=== PATIENT | male | born 1965 | race Caucasian/White ===

== ENCOUNTER → 2017-12-16 | Outpatient (CLI) | payer BC, OTHER | LOC: M SLEEP 19:20 | DX: G47.33 Obstructive sleep apnea (adult) (pediatric) (principal) | CPT/HCPCS: 95810 ==

== ENCOUNTER → 2018-02-03 | Outpatient (CLI) | payer BC, OTHER | LOC: M SLEEP 19:31 | DX: G47.33 Obstructive sleep apnea (adult) (pediatric) (principal) | CPT/HCPCS: 95811 ==

== ENCOUNTER 2018-07-14 13:37 | Emergency (ER) | payer OTHER, BC | END 2018-07-14 15:28 | disposition home or self-care (01) | LOC: M ED 13:37 | DX: T14.8XXA Other injury of unspecified body region, initial encounter (principal); Y04.0XXA Assault by unarmed brawl or fight, initial encounter; Y92.149 Unspecified place in prison as the place of occurrence of the external cause; K21.9 Gastro-esophageal reflux disease without esophagitis; Z88.8 Allergy status to other drugs, medicaments and biological substances; Z79.899 Other long term (current) drug therapy | CPT/HCPCS: 73030 ==

== ENCOUNTER → 2018-10-25 | Outpatient (REF) | payer OTHER, BC ==
[~2018-10-25] MED LIST: PANT40TA3 PO; RANI1TAB38 PO
== END ==
LOC: M LAB REF 12:25
PROVIDERS: ATTEND Nurse Practitioner Adult Health
DX: R05 Cough (principal); M79.12 Myalgia of auxiliary muscles, head and neck

== ENCOUNTER → 2019-01-24 | Outpatient (REF) | payer OTHER | LOC: M LAB REF 12:12 | PROVIDERS: ATTEND Nurse Practitioner Adult Health | DX: R79.82 Elevated C-reactive protein (CRP) (principal) ==

== ENCOUNTER 2019-04-20 06:51 | Day surgery (SDC) | payer BC, OTHER ==
[~2019-04-20] VITALS: Ht 177.8 cm; Wt 110.1 kg
[~2019-04-20 06:51] MED LIST changes: +ROSU10TA6 PO; +SING5CHW23 PO
[2019-04-20] MEDS ORDERED: NS 1,000 ML IV ONE (07:15)
[2019-04-20] MEDS ORDERED: LIDOCAINE 2% INJ 100 MG/5 ML SDV (FOR ANES.) As Ordered ONE (07:32)
[2019-04-20] MEDS ORDERED: PROPOFOL 200 MG/20 ML VIAL As Ordered ONE ×2 (07:32→07:46)
--- NOTE | 2019-04-20 07:49 | ROOR ---
Patient Name: Jacob Wilkerson Procedure Date: 04/20/2019 7:32 AM Date of : 1965 Age: 53 Room: [facility] Gender: Male Note Status: Finalized Procedure: Colonoscopy Indications: High risk colon cancer surveillance: Personal history of colonic polyps, Last colonoscopy: October 2015 Providers: Jose Manuel JAY MD Referring MD: Ana Lilia Hernandez NP Requesting Provider: Medicines: Monitored Anesthesia Care Complications: No immediate complications. Procedure: Pre-Anesthesia Assessment: - The heart rate, respiratory rate, oxygen saturations, blood pressure, adequacy of pulmonary ventilation, and response to care were monitored throughout the procedure. The Colonoscope was introduced through the anus and advanced to the cecum, identified by appendiceal orifice and ileocecal valve. The colonoscopy was performed without difficulty. The patient tolerated the procedure well. The quality of the bowel preparation was good. Findings: The perianal and digital rectal examinations were normal. Two sessile polyps were found in the rectum and sigmoid colon. The polyps were diminutive in size. These polyps were removed with a cold snare. Resection and retrieval were complete. Small Internal Hemorrhoids. The exam was otherwise without abnormality on direct and retroflexion views. Impression: - Two diminutive polyps in the rectum and in the sigmoid colon, removed with a cold snare. Resected and retrieved. - Small Internal Hemorrhoids. - The examination was otherwise normal on direct and retroflexion views. Recommendation: - Repeat colonoscopy in 5 years for surveillance. Jose Manuel Jay MD Jose Manuel JAY MD 04/20/2019 7:48:45 AM Electronically signed by Jose Manuel JAY MD Number of Addenda: 0 Note Initiated On: 04/20/2019 7:32 AM Estimated Blood Loss: Estimated blood loss: none.
[2019-04-20 08:13] VITALS: BP 144/79
== END 2019-04-20 08:15 | disposition home or self-care (01) ==
LOC: M OPP 06:51
PROVIDERS: ATTEND Internal Medicine Gastroenterology
DX: Z12.11 Encounter for screening for malignant neoplasm of colon (principal); Z86.010 Personal history of colon polyps; D12.5 Benign neoplasm of sigmoid colon; K62.1 Rectal polyp; K64.9 Unspecified hemorrhoids; K21.9 Gastro-esophageal reflux disease without esophagitis; G47.30 Sleep apnea, unspecified; E78.00 Pure hypercholesterolemia, unspecified; G43.909 Migraine, unspecified, not intractable, without status migrainosus; Z88.8 Allergy status to other drugs, medicaments and biological substances; Z79.899 Other long term (current) drug therapy

== ENCOUNTER → 2021-04-02 | Outpatient (REF) | payer OTHER, BC ==
[~2021-04-02] MED LIST changes: +PANT40TA29 PO; -PANT40TA3 PO
== END ==
LOC: M LAB REF 12:11
PROVIDERS: ATTEND Nurse Practitioner Adult Health
DX: M25.50 Pain in unspecified joint (principal)

== ENCOUNTER → 2021-05-01 | Outpatient (CLI) | payer BC, OTHER ==
--- NOTE | 2021-05-01 11:40 | REP ---
INDICATION: ABN GFR. COMPARISON: None. TECHNIQUE: Multiple ultrasonographic images of the kidneys and bladder. FINDINGS: The right kidney measures 11.8 x 17.2 x 5.9 cm The left kidney measures 10.4 x 5.4 x 5.8 cm. The kidneys are normal size. Renal cortical echogenicity is normal bilaterally. There is no calculus or hydronephrosis on the right or the left. There are no solid or cystic masses on the right or the left. There is a column of Eulalio versus duplication on the left. Bladder ultrasound: No bladder wall polyps or masses are identified. With color Doppler imaging we are unable to demonstrate ureteral jets on the right or the left. The prostate is upper normal size measuring 4.4 x 3.5 by 4.0 cm for a volume of 32 cc. IMPRESSION: Essentially negative renal ultrasound. We are unable to demonstrate ureteral jets into the bladder, however, there is no hydronephrosis. <Electronically signed by Juan Mcdermott > 05/01/21 [id number]
== END ==
LOC: M RAD 10:48
PROVIDERS: ATTEND Nurse Practitioner Adult Health
DX: R94.4 Abnormal results of kidney function studies (principal)

== ENCOUNTER → 2021-07-25 | Outpatient (REF) | payer BC, OTHER ==
[2021-07-25 17:45] LABS: C REACTIVE PROTEIN QUANTITATIV < 0.30 MG/DL (0.00-0.30); RHEUMATOID FACTOR QUANT < 10.0 IU/ML (<15.0)
[2021-07-25 17:57] LABS: PTH INTACT 27.7 PG/ML (18.5-88.0)
== END ==
LOC: M LAB REF 16:59
PROVIDERS: ATTEND Nurse Practitioner Adult Health
DX: M25.50 Pain in unspecified joint (principal); N18.31 Chronic kidney disease, stage 3a

== ENCOUNTER → 2021-11-12 | Outpatient (CLI) | payer BC, OTHER | LOC: M RAD 10:52 | PROVIDERS: ATTEND Nurse Practitioner Adult Health | DX: M48.02 Spinal stenosis, cervical region (principal); M25.78 Osteophyte, vertebrae ==

== ENCOUNTER 2025-01-02 06:57 | Day surgery (SDC) | payer BC ==
[~2025-01-02] VITALS: Ht 177.8 cm; Wt 109.4 kg
[~2025-01-02 06:57] MED LIST changes: +FAMO20TA PO; +MONT5TAB7 PO; -ROSU10TA6 PO; +ROSU10TA61 PO; -SING5CHW23 PO
[2025-01-02] MEDS ORDERED: GLYCOPYRROLATE INJ 0.2 MG/ML 2 ML VIAL As Ordered ONE (08:08)
[2025-01-02] MEDS ORDERED: propofoL 200 MG/20 ML VIAL As Ordered ONE (08:08)
[2025-01-02 08:34] VITALS: TEMP 97.2
[2025-01-02 08:52] VITALS: BP 127/70; O2SAT 96
== END 2025-01-02 08:58 | disposition home or self-care (01) ==
LOC: M OPP 06:57
PROVIDERS: ATTEND Internal Medicine Gastroenterology
DX: D12.3 Benign neoplasm of transverse colon (principal); D12.5 Benign neoplasm of sigmoid colon; K57.30 Diverticulosis of large intestine without perforation or abscess without bleeding; K64.8 Other hemorrhoids; Z86.0100 Personal history of colon polyps, unspecified; G47.30 Sleep apnea, unspecified; Z88.8 Allergy status to other drugs, medicaments and biological substances; Z79.899 Other long term (current) drug therapy
CPT/HCPCS: 45385; 88305; J1596